=== PATIENT | female | born 1990 | race Caucasian/White ===

== ENCOUNTER 2021-12-04 03:02 | Outpatient (CLI) | payer BC, SELFPAY ==
[2021-12-04 12:01] LABS: Source Nasal/Nares
[2021-12-04 14:45] LABS: COVID-19 PCR Negative (Negative)
== END 2021-12-04 03:03 | disposition home or self-care (01) ==
LOC: LBO 03:02
PROVIDERS: PCP Internal Medicine; Visit Provider Surgery
DX: Z20.822 Contact with and (suspected) exposure to COVID-19 (principal); Z01.818 Encounter for other preprocedural examination
CPT/HCPCS: 87635

== ENCOUNTER 2021-12-05 07:02 | Day surgery (SDC) | payer BC, SELFPAY ==
[2021-12-05 07:17] VITALS: BP 116/65; PULSE 55; RESP 18; TEMP 36.5; O2SAT 99
--- NOTE | 2021-12-05 07:36 | ANES.PREOP_ITS ---
General Info Date of Service Date Performed: 12/05/21 Height: 5 ft 5 in Weight: 66.9 kg Body Mass Index (BMI): 24.5 Surgical Procedure: Operation Date: 12/05/21 08:50 Proposed Procedure Side Surgeon p Gastroscopy Talisha Johnson, DO Meds Allergies and Home Medications Allergies Allergy/AdvReac Type Severity Reaction Status Date / Time egg Allergy Other (See Verified 12/05/21 07:26 Comment) nickel Allergy Rash Verified 12/05/21 07:26 Home Medication Medication Instructions Recorded cholecalciferol (vitamin D3) 10 10 mcg PO DIRECTED 08/16/21 mcg (400 unit) capsule cyclosporine 0.05 % eye drops in a 1 drp ophthalmic (eye) .in both 08/16/21 dropperette (Restasis) eyes daily levonorgestrel 20 mcg/24 hours (7 1 insert intrauterine ONCE 08/16/21 yrs) 52 mg intrauterine device (Mirena) [id number] 18 mg-FA 400 1 tab PO DAILY 08/16/21 mcg-calcium 500 mg-vit K 50 mcg tablet (Women's Multivitamin) omega 7-tzs-etu-fish oil 1,000 mg 1 cap PO DAILY 08/16/21 (120 mg-180 mg) capsule (Fish Oil) vitamin B complex 1 tab PO DAILY 08/16/21 clotrimazole 1 % topical cream 1 applic topical BID 11/06/21 (Antifungal (clotrimazole)) pantoprazole 40 mg tablet,delayed 40 mg PO DAILY #30 tabs 11/06/21 release (Protonix) sucralfate 1 gram tablet (Carafate) 1 g PO QAC #60 tabs 11/06/21 Current Visit Medications: Current Medications Generic Name Dose Route Start Last Admin Trade Name Freq PRN Reason Stop Dose Admin Hyoscyamine Sulfate 0.125 mg 12/04/21 12:54 Hyoscyamine 0.125 Mg Sl/Oral/Chew SL DIRECTED PRN Ringer's Solution 1,000 mls @ 80 mls/hr 12/05/21 06:00 IV 01/03/22 23:59 INFUSION ILYA IV Miscellaneous Supplies 1 each 12/05/21 06:00 Iv Access IV 01/03/22 23:59 DIRECTED ILYA Ondansetron HCl 4 mg 12/04/21 12:54 Ondansetron 4 Mg/2 Ml Vial IVP Q4H PRN PRN Nausea / Vomiting Sodium Chloride 0 ml 12/05/21 06:00 Normal Saline Flush 10 Ml Syr IV 01/03/22 23:59 PRN PRN Sodium Chloride 0 ml 12/05/21 06:00 Normal Saline 10 Ml Vial IJ 01/03/22 23:59 DIRECTED PRN Sterile Water 0 ml 12/05/21 06:00 Water,Injection,Sterile 10 Ml Vial IJ 01/03/22 23:59 DIRECTED PRN PFSH Active Problems Active Problems: Problem Status Onset Code Laryngopharyngeal reflux K21.9 Medical History Medical History Acquired hallux valgus of right foot [place] of toe Dysarthria Dyspareunia Heartburn High risk heterosexual behavior Internal hemorrhoids Overweight Pelvic and perineal pain Right knee pain Tinea pedis Unspecified voice and resonance disorder Vaginospasm Surgical History Surgical History (Updated 12/04/21 @ 11:09 by Fan Hernandez) History of surgical procedure on mouth [place] teeth removed Tobacco Smoking/Tobacco Use Status: Never Second hand exposure: No Alcohol Alcohol Intake: current Alcohol intake frequency: a few times a month Alcohol type: wine and other Substance Use Substance use: Never Substance use type: does not use Vital Signs and Lab Results Vital Signs Most Recent Vital Signs in EMR: Most Recent Vital Signs Temp Pulse Resp BP Pulse Ox 36.5 C 55 L 18 116/65 99 12/05/21 07:17 12/05/21 07:17 12/05/21 07:17 12/05/21 07:17 12/05/21 07:17 Point of Care Results Point of Care Results: POC- Test(urine) Negative 12/05/21 07:21 Lab Results Blood Type / Crossmatch: No Data to Display Complete Blood Count: No Data to Display Complete Metabolic Panel: No Data to Display Liver Function Panel: No Data to Display Coagulation Panel: No Data to Display Cardiac Panel: No Data to Display Arterial Blood Gas: No Data to Display Venous Blood Gas: No Data to Display Pancreas Panel: No Data to Display Thyroid Panel: No Data to Display Infectious Disease: Coronavirus (COVID-19)(PCR) Negative (Negative) 12/04/21 07:05 Coronavirus 2019 Source Nasal/Nares 12/04/21 07:05 Blood Cultures: No Data to Display Toxicology Panel: No Data to Display Panel: No Data to Display Anesthesia Assessment and Plan Anesthesia History Personal History: No History of Anesthesia Complications Family History: No Family History of Anesthesia Complications Exercise Tolerance Exercise Tolerance: Metabolic Equivalents>4 Pertinent Negatives Pertinent Negatives: No Symptoms of GERD Cardiac & Pulmonary Exam Cardiac Exam: Normal S1/S2 Heart Sounds Pulmonary Exam: Clear Bilateral Breath Sounds Implantable Cardiac Device Does patient have a Pacemaker or an ICD?: No Airway Exam Known Difficult Airway: No Mallampati Class: 1 Mouth Opening: Normal (> 3cm) Thyromental Distance: Greater than 3 cm Neck Range of Motion: Full ROM Neck Circumference: Normal Teeth Condition: Normal Dentition Airway Comments: History of TMJ, went to physical therapy, symptoms significantly improved. ASA Classification ASA Score: ASA 2 Emergency Case?: No NPO Status NPO Status: NPO Clears >2 hours, Solids >8 hours Status Status: Negative HCG Anesthesia Plan Resuscitation Status: Full Code Anesthesia Technique: General Anesthesia Airway Planned: Natural Airway Monitors Used: Standard Monitors Preoperative Comments:: Patient reports egg allergy is upset stomach, frequently consumes food with eggs.
[2021-12-05] MEDS: Lactated Ringers 1,000 ML 80 ML IV (07:44)
[2021-12-05 08:04] VITALS: BMI 24.5
--- NOTE | 2021-12-05 09:08 | STOM_PTH ---
PATIENT: Isabela Powell LOC: [facility] U#:[id number] AGE/SX: 31/F ROOM: RE12/05/[address]: Talisha Johnson : 1990 BED: DIS: 12/05/2021 SPEC #: [id number] RECD: 12/05/21 12:26 STATUS: JENNIFER RE #: [id number] REJI: 12/05/21 09:[address]: Talisha Johnson DEPT: Surgical Specimen RECD BY: Jie Zafar ENTERED: 12/05/21 12:27 SP TYPE: STOMACH OTHR DR: Selina Munson Tissues: 1 - BIOPSY BOWEL 2 - BIOPSY BOWEL 3 - STOMACH BIOPSY 4 - STOMACH BIOPSY 5 - ESOPHAGUS BIOPSY 6 - ESOPHAGUS BIOPSY Procedures: GROSS AND MICRO LEVEL 4 Comments: [id number]
--- NOTE | 2021-12-05 09:17 | W.PM.ENDDOP ---
Date of service: 12/05/21 Time of Service: 08:18 Endoscopy Report DATE OF PROCEDURE: 12/05/21 PRE-OP DIAGNOSIS: Change in voice/hoarse voice/possible silent reflux POST-OP DIAGNOSIS: other (Nl- path pd ) SURGEON: Talisha Johnson ANESTHESIA TYPE: General:No Airway ESTIMATED BLOOD LOSS: 1 PATHOLOGY: other COMPLICATIONS: None DISPOSITION: same day PROCEDURE DESCRIPTION: After informed consent was obtained the patient was take to the procedure room and placed in a supine position. Monitors were applied and a time out was done. The patients name, date of , procedure type, allergies to medications and metal in their body was reviewed. A bite block was placed and the patient was sedated. Once sedated and comfortable the gastroscope was advanced through the oropharynx which was grossly normal into the esophagus. The proximal and mid-esophagus were nl. There are no esophageal erosions, varices, diverticula, or stricture. The Z-line was regular. There is no hiatal hernia. The scope was advanced into the stomach and through the pylorus into the 3rd portion of the duodenum. The duodenum was noted to be normal. Biopsies were done, all specimens are retrieved and no bleeding is noted. The scope was retracted back into the stomach and biopsies were done to rule out H. pylori. There were no ulcers, gastritis, polyps, or other abnormalities visualized today. The scope was retroflexed. The cardia and fundus were noted to be normal. There no hiatal hernia noted. The scope was retracted back into the esophagus and biopsies were done of the GE junction to rule out Santos's. The Z line was regular. The GE junction was at 38 cm, biopsies were taken of the GE junction and the distal esophagus. The scope was removed and the patient was woken up and taken back to [facility] in stable condition. Follow up: 2 wks to review Bx.
--- NOTE | 2021-12-05 09:20 | PDOC.DSDIS_ITS ---
Discharge Plan Disposition Condition: Good Discharge Details Reason For Visit: stomach scope Attending Provider: Talisha Johnson Primary Care Provider: Selina Munson Home Meds and New Rx's Prescriptions: No Action clotrimazole [Antifungal (clotrimazole)] 1 % cream 1 applic topical BID pantoprazole [Protonix] 40 mg tablet,delayed release (DR/EC) 40 mg PO DAILY Qty: 30 12RF sucralfate [Carafate] 1 gram tablet 1 g PO QAC Qty: 60 12RF vitamin B complex Tablet 1 tab PO DAILY omega 6-bcr-vbl-fish oil [Fish Oil] 1,000 mg (120 mg-180 mg) capsule 1 cap PO DAILY Mirena 20 mcg/24 hours (7 yrs) 52 mg intrauterine device 1 insert intrauterine ONCE Rx Instructions: Take by intrauterine route Restasis 0.05 % dropperette 1 drp ophthalmic (eye) .in both eyes daily cholecalciferol (vitamin D3) 10 mcg (400 unit) capsule 10 mcg PO DIRECTED Rx Instructions: Pt unsure of dose Women's Multivitamin 18 mg-400 mcg- 500 mg-50 mcg tablet 1 tab PO DAILY Discharge Instructions Additional Instructions: Post EGD Instruction ? ?You had anesthesia for your EGD/stomach scope today.? For your safety, please do the following for the next twenty-four (24) hours: Do Not operate a motor vehicle (car, truck, motorcycle, etc.) Do Not drink alcoholic beverages or use any recreational drugs for the first 24 hours or while taking pain medications. The medications in your body may have a reaction that can be dangerous. Do Not make any important decisions or sign any important papers ? You have just had a gastroscopy (EGD) or upper GI tract examination. It is important for your smooth recovery that you carefully follow the recommendations below. Do not hesitate to call if any questions should arise about your anesthesia, condition, or care. -Symptoms you may experience during the next 24 hours: ?1. Mild abdominal pain or excessive gas or a bloated feeling which improves with rest, liquids, eating? slightly, and walking as tolerated. 2. Drowsiness and/or forgetfulness because of the medications you were given. ?3. Throat numbness for about 1 hour. 4. A sore throat which you can treat with throat lozenges or by gargling with salt water 4-5 times a day. 5. Redness at the site of your IV which you can treat with warm compresses. ? SPECIAL INSTRUCTIONS: 1. You may resume your previous diet in one hour. We recommend a light meal to start, then progress as tolerated. 2. Restart regular medications in one hour. 3. No aspirin or non-steroidal containing medication for three days. 4. No lifting over 20 pounds or strenuous activity for the first 24 hours after your procedure. After 24 hours there are no restrictions on your activity, but you may feel fatigued for a few days. Findings: grossly appears normal -Continue to follow lifestyle modifications: No alcohol, tobacco products, Aspirin or NSAID's (ibuprofen, Motrin, Naprosyn, aleve, etc).? Try to limit/avoid:? soda pop/any carbonated beverages, caffeine (including tea & chocolate), and acidic foods, (tomatoes, citrus, onions, peppermints) spicy or fried/fatty foods. Do not lie down for 30 minutes after e ating, and do not eat 2 hours prior to bedtime. Avoid wearing tight fitting clothing/ belts. Follow up: 2 wks to review Biopsy's ?Call the office at [phone] (Office) or [phone] (Hospital), or go to the ER right away if you notice any of the followin. Vomiting blood and /or ?coffee ground? material. ?2. Worsening of abdominal pain or cramping. ?3. Trouble with breathing, cough, and/or fever (temperature above 101.5 F). 4. Increasing pain with swallowing. ?5. Chest pain. 6. Any new symptoms. 7. Worsening of the redness at the IV site ?
[2021-12-05 09:22] VITALS: BP 102/56; PULSE 51; RESP 16; TEMP 36.4; O2SAT 96
[2021-12-05 09:58] VITALS: BP 94/60; PULSE 51; RESP 16; TEMP 36.7; O2SAT 100
--- NOTE | 2021-12-05 10:14 | W.ANESPOSTOP ---
Postoperative Evaluation Date, Time and Location Date Performed: 12/05/21 Time Performed: 09:14 Patient Location: Day Surgery Unit Vital Signs Most Recent Imported Vital Signs: Most Recent Vital Signs Temp Pulse Resp BP Pulse Ox 36.4 C L 51 L 16 102/56 L 96 12/05/21 09:22 12/05/21 09:22 12/05/21 09:22 12/05/21 09:22 12/05/21 09:22 Pain Score Most Recent Pain Score: Most Recent Pain Score Pain Level 0 12/05/21 09:22 Assessment Mental Status: Awake (Alert & Oriented to Patient Baseline) Airway and Respiratory Function: Patent airway with normal (patient baseline) respiratory exam Cardiovascular Function: Hemodynamically Stable Hydration Status: Adequately Hydrated Nausea & Vomiting: No Nausea or Vomiting Pain: Pt. Denies Any Pain Peripheral Nerve Block: Patient did not receive a nerve block
== END 2021-12-05 10:15 ==
PROVIDERS: PCP Internal Medicine; Visit Provider Surgery
PROC: 0DJ68ZZ Inspection of Stomach, Via Natural or Artificial Opening Endoscopic (ICD-10-PCS; CPT 43235; principal; 2021-12-05 08:45)
DX: R49.0 Dysphonia (principal); R12 Heartburn; K63.89 Other specified diseases of intestine; K31.89 Other diseases of stomach and duodenum; K22.89 Other specified disease of esophagus
CPT/HCPCS: 43239; 88305

== ENCOUNTER 2022-07-05 11:38 | Emergency (ER) | payer BC, SELFPAY ==
[2022-07-05 11:40] VITALS: BP 110/70; PULSE 68; RESP 14; TEMP 37; O2SAT 100
--- NOTE | 2022-07-05 13:07 | W.ED.GENAD ---
Discharge Plan Disposition Patient Disposition: Home Condition: Stable Discharge Details Clinical Impression: Upper respiratory infection Primary Care Provider: Selina Munson ED Provider: Brando Marshall Home Meds and New Rx's Prescriptions: New erythromycin 5 mg/gram (0.5 %) ointment 0.5 inch ophthalmic (eye) QID Qty: 3.5 0RF Continued clotrimazole [Antifungal (clotrimazole)] 1 % cream 1 applic topical BID sucralfate [Carafate] 1 gram tablet 1 g PO QAC Qty: 60 12RF vitamin B complex Tablet 1 tab PO DAILY omega 9-crz-yrn-fish oil [Fish Oil] 1,000 mg (120 mg-180 mg) capsule 1 cap PO DAILY Mirena 20 mcg/24 hours (7 yrs) 52 mg intrauterine device 1 insert intrauterine ONCE Rx Instructions: Take by intrauterine route Restasis 0.05 % dropperette 1 drp ophthalmic (eye) .in both eyes daily cholecalciferol (vitamin D3) 10 mcg (400 unit) capsule 10 mcg PO DIRECTED Rx Instructions: Pt unsure of dose Women's Multivitamin 18 mg-400 mcg- 500 mg-50 mcg tablet 1 tab PO DAILY pantoprazole [Protonix] 40 mg tablet,delayed release (DR/EC) 40 mg PO DAILY Qty: 30 12RF Discharge Instructions Instructions: Upper Respiratory Infection (ED), Conjunctivitis (ED) Additional Instructions: Your symptoms are consistent with a viral infection. Testing for flu and covid are pending at time of discharge. Please maintain home isolation until covid test result is negative. Please drink plenty of fluid and allow for plenty of rest. Please followup with your primary care physician. Return to the ER for any worsening or new concerning symptoms. Referrals: Selina Munson [Primary Care Provider] - Discharge Data Discharge Date/Time-TO BE ENTERED AT DEPARTURE: 07/05/22 13:22 Medical Decision Making 32-year-old female here with URI with conjunctivitis. Patient saturating well in no respiratory distress. Lungs clear to auscultation. No signs of focal bacterial infection on exam. Rapid COVID and influenza negative. We will send COVID PCR. Supportive care recommended. I will prescribe erythromycin ophthalmic ointment should symptoms persist or worsen. Usual customary discharge instructions reviewed with the patient. HPI General Mode of arrival: ambulatory. Date/Time Provider Initiated Documentation: 07/05/22 12:17. Limitations to Documentation: no limitations. Information obtained by: patient. HPI Narrative: 32-year-old female here with chief complaint of eye discharge. Patient notes she woke up this morning with crusty discharge from her eyes. She states she has had respiratory illness over the past 2 to 3 days. She notes discomfort in her throat, feels congested, minimal cough. Symptoms have persisted with no modifiers. Related Data Home Medications Medication Instructions Recorded Confirmed cholecalciferol (vitamin D3) 10 10 mcg PO DIRECTED 08/16/21 07/05/22 mcg (400 unit) capsule cyclosporine 0.05 % eye drops in a 1 drp ophthalmic (eye) .in both 08/16/21 07/05/22 dropperette (Restasis) eyes daily levonorgestrel 20 mcg/24 hours (8 1 insert intrauterine ONCE 08/16/21 07/05/22 yrs) 52 mg intrauterine device (Mirena) [id number] 18 mg-FA 400 1 tab PO DAILY 08/16/21 07/05/22 mcg-calcium 500 mg-vit K 50 mcg tablet (Women's Multivitamin) omega 3-kef-bov-fish oil 1,000 mg 1 cap PO DAILY 08/16/21 07/05/22 (120 mg-180 mg) capsule (Fish Oil) vitamin B complex 1 tab PO DAILY 08/16/21 07/05/22 clotrimazole 1 % topical cream 1 applic topical BID 11/06/21 07/05/22 (Antifungal (clotrimazole)) sucralfate 1 gram tablet (Carafate) 1 g PO QAC #60 tabs 11/06/21 07/05/22 pantoprazole 40 mg tablet,delayed 40 mg PO DAILY #30 tabs 04/02/22 07/05/22 release (Protonix) erythromycin 5 mg/gram (0.5 %) eye 0.5 inch ophthalmic (eye) QID #3.5 07/05/22 ointment grams Previous Rx's Medication Instructions Recorded sucralfate 1 gram tablet (Carafate) 1 g PO QAC #60 tabs 11/06/21 pantoprazole 40 mg tablet,delayed 40 mg PO DAILY #30 tabs 04/02/22 release (Protonix) erythromycin 5 mg/gram (0.5 %) eye 0.5 inch ophthalmic (eye) QID #3.5 07/05/22 ointment grams Allergies Allergy/AdvReac Type Severity Reaction Status Date / Time egg Allergy Other (See Verified 07/05/22 11:46 Comment) nickel Allergy Rash Verified 07/05/22 11:46 General Stated Complaint: EyeProblem MICHELLE: 3 Review of Systems All systems reviewed & are unremarkable except as noted in HPI and below Constitutional Constitutional: Reports fatigue Respiratory Respiratory: Reports cough Endocrine Endocrine: Reports fatigue PFSH All Active Problems (Updated 07/05/22 @ 13:08 by Brando Marsahll MD) Upper respiratory infection (Acute) GERD (gastroesophageal reflux disease) (Chronic) Laryngopharyngeal reflux (Acute) Medical History (Updated 07/05/22 @ 13:08 by Brando Marshall MD) Acquired hallux valgus of right foot [place] of toe Dysarthria Dyspareunia Heartburn High risk heterosexual behavior Internal hemorrhoids Overweight Pelvic and perineal pain Right knee pain Tinea pedis Unspecified voice and resonance disorder Vaginospasm Surgical History (Updated 12/20/21 @ 14:30 by Vidya Mata RN) History of esophagogastroduodenoscopy (EGD) (~12/05/21) History of surgical procedure on mouth [place] teeth removed Family History Maternal Grandfather Prostate cancer Mother Hypertension Father , at age 59 Myocardial infarction Paternal Grandfather , at age 60 Myocardial infarction Social History Smoking/Tobacco Use Status: Never Second Hand Exposure: No Smoking risk assessment performed?: Yes Alcohol Intake: current Alcohol Intake frequency: a few times a month Alcohol type: wine and other Drug use: Never Substance use type: does not use Household members: significant other and children current occupation: assistant infant toddler teacher Pets and animals: Yes Pets and animals: cat(s) and dog(s) Do you feel safe at home: Yes Do you feel safe in your relationship?: Yes Exam Const General: cooperative and no acute distress HENMT Mouth: moist mucous membranes Throat: posterior oropharynx normal Eyes Conjunctivae: normal conjunctivae Sclera: normal sclerae Neck Neck: trachea midline and supple Resp Effort & Inspection: normal respiratory effort and not labored Auscultation: clear to auscultation bilaterally, no rales, no rhonchi and no wheezes Cardio Rate: regular rate and not tachycardic Rhythm: regular rhythm GI Palpation: soft, not firm, no guarding, no masses, not rigid and nontender Skin General skin exam: no rashes or lesions noted Neuro General: patient alert, patient awake and tone normal Course Vital Signs Vital signs: Vital Signs Temperature 37.0 C 07/05/22 11:40 Pulse 68 07/05/22 11:40 Respiratory Rate 14 07/05/22 11:40 Blood Pressure 110/70 07/05/22 11:40 Pulse Oximetry 100 07/05/22 11:40 Temperature 37.0 C 07/05/22 11:40 Temperature Source Skin 07/05/22 11:40 Pulse 68 07/05/22 11:40 Respiratory Rate 14 07/05/22 11:40 Respiratory Effort 07/05/22 11:47 Blood Pressure 110/70 07/05/22 11:40 Pulse Oximetry 100 07/05/22 11:40 Oxygen Delivery Method Room Air 07/05/22 11:40 Oxygen Flow Rate 0 07/05/22 11:40 Pain Level 2 07/05/22 11:40
[2022-07-07 11:25] LABS: COVID-19 RT-PCR UVMMC Result Negative (Negative)
--- NOTE | 2022-07-09 11:22 | NUR.NOTE ---
Addendum entered by Sienna Haynes 07/09/22 12:56: Patient returned call and per Berenice Catherine I gave the patient her results to her COVID test, negative. Original Note: left message for patient to call for her covid results
== END 2022-07-05 13:22 | disposition home or self-care (01) ==
PROVIDERS: Emergency Provider Student in an Organized Health Care Education/Training Program; PCP Internal Medicine
DX: J06.9 Acute upper respiratory infection, unspecified (principal); H10.9 Unspecified conjunctivitis; Z20.822 Contact with and (suspected) exposure to COVID-19
CPT/HCPCS: 99283; U0003; 99284

== ENCOUNTER 2022-07-22 12:11 | Emergency (ER) | payer BC, SELFPAY ==
[2022-07-22 12:26] VITALS: BP 107/58; PULSE 64; RESP 18; TEMP 37; O2SAT 97
--- NOTE | 2022-07-22 13:04 | ED.GENADUL_ITS ---
Discharge Plan Disposition Patient Disposition: Home Condition: Stable Discharge Details Clinical Impression: Acute serous otitis media Primary Care Provider: Selina Munson ED Provider: Juarez Rodriguez Home Meds and New Rx's Prescriptions: New meclizine 25 mg tablet 25 mg PO TID PRN (Reason: dizziness) Qty: 20 0RF Continued sucralfate [Carafate] 1 gram tablet 1 g PO QAC Qty: 60 12RF vitamin B complex Tablet 1 tab PO DAILY omega 7-iir-jcz-fish oil [Fish Oil] 1,000 mg (120 mg-180 mg) capsule 1 cap PO DAILY Mirena 20 mcg/24 hours (7 yrs) 52 mg intrauterine device 1 insert intrauterine ONCE Rx Instructions: Take by intrauterine route Restasis 0.05 % dropperette 1 drp ophthalmic (eye) .in both eyes daily cholecalciferol (vitamin D3) 10 mcg (400 unit) capsule 10 mcg PO DIRECTED Rx Instructions: Pt unsure of dose Women's Multivitamin 18 mg-400 mcg- 500 mg-50 mcg tablet 1 tab PO DAILY pantoprazole [Protonix] 40 mg tablet,delayed release (DR/EC) 40 mg PO DAILY Qty: 30 12RF Discharge Instructions Instructions: Serous Otitis Media (ED) Additional Instructions: Continue to use oick-iod-wqyijvb pain medication as needed for any discomfort. Please take prescribed medication for episodes of dizzy just when they occur. If you are not seeing signs of improvement in the next 2 to 4 weeks please follow-up with your primary care provider for reassessment or return to the emergency department for any new or significant worsening of your condition. Referrals: Selina Munson [Primary Care Provider] - 2 weeks Discharge Data Discharge Date/Time-TO BE ENTERED AT DEPARTURE: 07/22/22 13:21 Medical Decision Making Patient presenting to the emergency department for chief complaint of right ear feeling clogged and having some vertigo and nausea. Patient denies any injury or trauma, does state last week she did have a significant cold that she is improved from but then over the past couple days have had feelings of dizziness nausea and plugged right ear. Physical exam is consistent with serous otitis media, no signs of infection, no mastoiditis, otherwise unremarkable HEENT exam. Discussed with patient conservative management of serous otitis media along with return and follow-up precautions. After discussion of diagnosis and plan of care patient has no further needs, questions, or concerns and states clear understanding to return to the emergency department for any worsening symptoms. This documentation was generated using [employer] dictation system, please disregard any oddities of phrase or misspellings. HPI General Mode of arrival: ambulatory . Date/Time Provider Initiated Documentation: 07/22/22 12:48 . Limitations to Documentation: no limitations . Information obtained by: RN notes reviewed . History of Present Illness 32 year old F presents to the emergency department with the chief complaint of Plugged right ear, Quality is described as other (Denies pain), Patient started experiencing this day(s) (3) and it has been constant. No relieving factors improve symptom(s), Movement worsens symptoms . Patient did receive the following treatments prior to arrival, none Related Data Home Medications Medication Instructions Recorded Confirmed cholecalciferol (vitamin D3) 10 10 mcg PO DIRECTED 08/16/21 07/22/22 mcg (400 unit) capsule cyclosporine 0.05 % eye drops in a 1 drp ophthalmic (eye) .in both 08/16/21 07/22/22 dropperette (Restasis) eyes daily levonorgestrel 20 mcg/24 hours (8 1 insert intrauterine ONCE 08/16/21 07/22/22 yrs) 52 mg intrauterine device (Mirena) eflcolmv-agb-rwxk 18 mg-FA 400 1 tab PO DAILY 08/16/21 07/22/22 mcg-calcium 500 mg-vit K 50 mcg tablet (Women's Multivitamin) omega 5-ucb-wpu-fish oil 1,000 mg 1 cap PO DAILY 08/16/21 07/22/22 (120 mg-180 mg) capsule (Fish Oil) vitamin B complex 1 tab PO DAILY 08/16/21 07/22/22 sucralfate 1 gram tablet (Carafate) 1 g PO QAC #60 tabs 11/06/21 07/22/22 pantoprazole 40 mg tablet,delayed 40 mg PO DAILY #30 tabs 04/02/22 07/22/22 release (Protonix) meclizine 25 mg tablet 25 mg PO TID PRN dizziness #20 tabs 07/22/22 Previous Rx's Medication Instructions Recorded sucralfate 1 gram tablet (Carafate) 1 g PO QAC #60 tabs 11/06/21 pantoprazole 40 mg tablet,delayed 40 mg PO DAILY #30 tabs 04/02/22 release (Protonix) meclizine 25 mg tablet 25 mg PO TID PRN dizziness #20 tabs 07/22/22 Allergies Allergy/AdvReac Type Severity Reaction Status Date / Time egg Allergy Other (See Verified 07/22/22 12:28 Comment) nickel Allergy Rash Verified 07/22/22 12:28 General Stated Complaint: EarProblem MICHELLE: 5 Review of Systems Narrative: 6 systems reviewed and unremarkable except what is marked below. Constitutional Constitutional: Denies chills and Denies fever(s) Eyes Eyes: Denies change in vision ENT Ears, Nose, Mouth, and Throat: Reports vertigo, Denies dizziness, Denies ear discharge, Reports otalgia, Denies nasal discharge and Denies sore throat Gastrointestinal Gastrointestinal: Reports nausea Neurologic Neurologic: Reports vertigo and Denies dizziness PFSH All Active Problems (Updated 07/22/22 @ 13:09 by Juarez Rodriguez NP) Upper respiratory infection (Acute) Acute serous otitis media (Acute) GERD (gastroesophageal reflux disease) (Chronic) Laryngopharyngeal reflux (Acute) Medical History Acquired hallux valgus of right foot Lawrence of toe Dysarthria Dyspareunia Heartburn High risk heterosexual behavior Internal hemorrhoids Overweight Pelvic and perineal pain Right knee pain Tinea pedis Unspecified voice and resonance disorder Vaginospasm Surgical History History of esophagogastroduodenoscopy (EGD) (~12/05/21) History of surgical procedure on mouth Sixes teeth removed Family History Maternal Grandfather Prostate cancer Mother Hypertension Father , at age 59 Myocardial infarction Paternal Grandfather , at age 60 Myocardial infarction Social History Smoking/Tobacco Use Status: Never Second Hand Exposure: No Smoking risk assessment performed?: Yes Alcohol Intake: current Alcohol Intake frequency: a few times a month Alcohol type: wine and other Drug use: Never Substance use type: does not use Household members: significant other and children current occupation: statistics teacher Pets and animals: Yes Pets and animals: cat(s) and dog(s) Do you feel safe at home: Yes Do you feel safe in your relationship?: Yes Exam Const General: cooperative, comfortable and no acute distress Orientation: alert and awake HENMT Head: normal to inspection, normocephalic and atraumatic Ears: hearing grossly normal bilaterally, TM normal on the left, EAC's normal, mastoids normal and TM abnormal wth effusion serous on the right General nose exam: external nose normal Face and sinus: no erythema Mouth: oral mucosae normal, no drooling, no muffled voice and no trismus Throat: posterior oropharynx normal Neck Neck: normal visual inspection, full ROM, no lymphadenopathy, no meningeal signs, trachea midline and supple Resp Effort & Inspection: normal respiratory effort and able to speak in complete sentences Skin General skin exam: no rashes or lesions noted and dry skin (warm) Neuro General: patient alert, patient awake and patient oriented x3 Cognition: normal cognition Speech: speech normal Course Vital Signs Vital signs: Vital Signs Temperature 37.0 C 07/22/22 12:26 Pulse 64 07/22/22 12:26 Respiratory Rate 18 07/22/22 12:26 Blood Pressure 107/58 L 07/22/22 12:26 Pulse Oximetry 97 07/22/22 12:26 Temperature 37.0 C 07/22/22 12:26 Temperature Source Temporal Artery Scan 07/22/22 12:26 Pulse 64 07/22/22 12:26 Respiratory Rate 18 07/22/22 12:26 Respiratory Effort Non-Labored 07/22/22 12:30 Blood Pressure 107/58 L 07/22/22 12:26 Blood Pressure Position Sitting 07/22/22 12:26 Pulse Oximetry 97 07/22/22 12:26 Oxygen Delivery Method Room Air 07/22/22 12:26 Oxygen Flow Rate 0 07/22/22 12:26 Pain Level 0 07/22/22 12:26 Comment 07/22/22 12:26 PAWSS Have you Been Recently Intoxicated or Drunk Within the Last 30 days?: No Have you Ever Experienced Previous Episodes of Alcohol Withdrawal?: No Have you ever Experienced Withdrawal Seizures?: No Have you ever Experienced Delirium Tremens(DT)s?: No Have you ever undergone Alcohol Rehabilitation Treatment (i.e, inpt ot outpatient treatment programs)?: No Have you ever Experienced Blackouts?: No Have you ever Combined Alcohol with other Downers within the last 90 days?: No Have you ever Combined Alcohol with any other Substance of Abuse during the last 90 days?: No Positive Blood Alcohol level on Presentation? [PCS.BAL]: No Evidence of Increased Autonomic Activity (i.e. HR>120, tremor, sweating, agitation, nausea)?: No Result: 0
== END 2022-07-22 13:21 | disposition home or self-care (01) ==
PROVIDERS: Emergency Provider Nurse Practitioner Family; PCP Internal Medicine
DX: H65.01 Acute serous otitis media, right ear (principal)
CPT/HCPCS: 99283

== ENCOUNTER 2022-10-18 01:09 | Outpatient (CLI) | payer BC, SELFPAY ==
--- NOTE | 2022-10-18 07:15 | DI.MRI_ITS ---
Exam(s) MR IAC BRAIN WO/W EXAM: MR IAC BRAIN WO/W CLINICAL HISTORY: SSN hearing loss,right,rt tinnitus,h93.11,h90.5. TECHNIQUE: Multiplanar multisequence MRI of the brain and internal auditory canals was performed. CONTRAST MATERIAL: IV Contrast: 13 mL of Magnevist contrast administered. COMPARISON: No exams were available for comparison FINDINGS: VENTRICLES AND EXTRA AXIAL SPACES: Normal in size and morphology for the patient's age. HEMORRHAGE: None. CEREBRAL PARENCHYMA: No focus of restricted diffusion to suggest acute infarct. No space-occupying le jb identified. MIDLINE SHIFT: None. BRAINSTEM/CEREBELLUM: Normal. CALVARIUM: Normal. ENHANCEMENT: No suspicious enhancement identified. VISUALIZED PARANASAL SINUSES/MASTOIDS: Clear. IAC/CP ANGLE: The internal auditory canals are within normal limits. The cerebellar pontine angles ar e unremarkable. No enhancing lesions are seen. Visualized portion of the cranial nerves appear within normal limits. OTHER FINDINGS: None. IMPRESSION: Unremarkable MRI of the brain and internal auditory canals. DATA REPOSITORY:
[2022-10-18] MEDS: Gadoterate meglumine 20 ML VIAL IVP (09:53)
[2022-10-18] MEDS: Normal Saline Flush 10 ML SYR IVP (09:54)
== END 2022-10-18 01:29 ==
LOC: DI 01:10
PROVIDERS: PCP Internal Medicine; Visit Provider Otolaryngology
DX: H90.41 Sensorineural hearing loss, unilateral, right ear, with unrestricted hearing on the contralateral side; H93.11 Tinnitus, right ear
CPT/HCPCS: 70553

== ENCOUNTER 2022-11-06 01:22 | Outpatient (CLI) | payer BC, SELFPAY ==
--- NOTE | 2022-11-06 07:00 | DI.MRI_ITS ---
Exam(s) MR LOWER EXTREMITY RT WO EXAM: MR LOWER EXTREMITY RT WO CLINICAL HISTORY: R great toe pain, s/p injury,M79.676 TECHNIQUE: Multiplanar multisequence MRI was performed without intravenous contrast. COMPARISON: CR XR FOOT COMPLETE MIN 3V RT from 04/09/2022 FINDINGS: BONES/JOINTS: No evidence of an acute fracture. There is mild edema seen in the subchondral bone in the head of the 1st metatarsal. No bone lesions identified. Degenerative changes are noted with nick articular spurring of the head. There is a small joint effusion at the 1st MTP joint. There is a mi ld hallux valgus deformity. There are nonspecific areas of hyperintense signal on the T2 weighted tucker ges in the proximal and distal phalanges of the great toe. No associated fracture is seen. MUSCULOTENDINOUS STRUCTURES: The muscles show normal signal and size. No muscular fatty atrophy. SOFT TISSUES: Unremarkable. OTHER FINDINGS: None. IMPRESSION: 1. No evidence of an occult fracture. 2. Mild edema seen in the proximal and distal phalanges and the 1st metatarsal. These areas are nonsp ecific. These may represent contusions. 3. Hallux valgus deformity. Small effusion at the 1st metatarsophalangeal joint. Mild degenerative ch anges seen at the 1st MTP joint. DATA REPOSITORY:
== END 2022-11-06 01:42 ==
PROVIDERS: PCP Internal Medicine; Visit Provider Podiatrist Foot & Ankle Surgery
DX: M79.676 Pain in unspecified toe(s) (principal); M20.10 Hallux valgus (acquired), unspecified foot
CPT/HCPCS: 73718

== ENCOUNTER 2024-03-24 01:21 | Outpatient (CLI) | payer BC, SELFPAY ==
--- NOTE | 2024-03-24 08:00 | DI.RAD_ITS ---
Exam(s) XR FOOT RT COMPLETE EXAM: XR FOOT RT COMPLETE CLINICAL HISTORY: Right foot pain,m79.671. TECHNIQUE: 2D digital imaging was performed. COMPARISON: No exams were available for comparison FINDINGS: 3 views There is no evidence of acute fracture or diastasis of the Lisfranc joint. Hallux valgus is noted. No obvious degenerative changes in the MTP joints. Bone density is normal. No osseous lesions. No pes planus. No erosions. IMPRESSION: No acute osseous findings. Hallux valgus noted. DATA REPOSITORY: RADIATION DOSE DELIVERED:
== END 2024-03-24 01:41 ==
LOC: DI 01:21
PROVIDERS: PCP Internal Medicine; Visit Provider Podiatrist
DX: M79.671 Pain in right foot (principal)
CPT/HCPCS: 73630